=== PATIENT | female | born 1960 ===

== ENCOUNTER 2023-12-02 01:19 | Emergency (ER) | payer MEDICARE, SELFPAY ==
[2023-12-02 01:22] VITALS: BP 163/44
--- NOTE | 2023-12-02 01:46 | ED.GENMED ---
History of Present Illness
General
Chief Complaint: Headache
Source: patient
Exam Limitations: none
Time Seen by Provider: 12/02/23 01:27
History of Present Illness
History of Present Illness:
This is a 63 year old female that comes in with c/o headache. States that yesterday she started with a migraine. States that she took Excedrin and esther. Then 2 hours later she took Ubrelvy which her neurologist gave her. Then 2 hours later she
took this again and she felt OK. Then 3 hours later she took Ibuprofen 800mg and sent to sleep. In the morning she was ok. Then around 10am she started with a Ora of blinking and sparkling. At 11pm last night she got the numbness in the right arm
and her face which she states she always gets. States that she took Ubrelvy but this did not help. States that this was different then her normal migraine as it was across her forehead and then went to the back of her head. At 12:30am she took
Ibuprofen 600mg. States that she is nauseated and vomiting and still has a headache.
Past History
Past History
ED Past Medical History: Cancer (Lymphoma) and Other (Migraine, West Nile virus)
ED Past Surgical History: None
Social History
Tobacco: Non-smoker
Alcohol: None
Personal:
Living: with family
Review of Systems
Review of Systems
All Other Systems: ROS reviewed and negative except as documented in HPI and ROS
Constitutional: Reports no symptoms; Denies fever or chills
EENT: Reports no symptoms
Respiratory: Reports no symptoms; Denies cough or trouble breathing
Cardiac: Reports no symptoms; Denies chest pain
ABD/GI: Reports nausea and vomiting; Denies abdominal pain or diarrhea
: Reports no symptoms; Denies dysuria, frequency or urgency
Musculoskeletal: Reports no symptoms
Skin: Reports no symptoms
Neurological: Reports headache; Denies dizzy
Psychiatric: Reports no symptoms
Phy Exam
General Physical Exam
General Presentation: no apparent distress
General age: appears stated age
General Skin: warm and dry
General Habitus: normal
General Mental: alert
General Hydration: dry mucous membranes
ENT Exam
ENT Exam: TM's normal, pharynx normal and neck supple
Eye Exam
Eye Exam: EOMI
Cardiovascular Exam
Cardiovascular Exam: regular rate/rhythm, no edema, no murmur and normal peripheral pulses
Pulmonary Exam
Pulmonary Exam: lungs clear, no respiratory distress, no rales, chest non tender, no crackles, no rhonchi, no wheezing and no cough
Gastrointestinal Exam
Gastrointestinal Exam: normal bowel sounds, non tender, soft, no organomegaly, no pulsatile mass and non distended
Musculoskeletal Exam
Musculoskeletal Exam: full ROM and no edema
Skin Exam
Skin Exam: normal color, warm/dry, no rash and no petechia
Psychiatric Exam
Psychiatric Exam: normal mood/affect
Course
Orders/Labs/Results
Orders:
Orders
12/02/23 01:44
0.9% Sodium Chloride 500 ml [Nss] 500 ml IV BOLUS
Acetaminophen 1000MG/100Ml [Ofirmev] 1,000 mg in 100 ml IV ONCE
Acetaminophen IV Indication:: ED Narcotic Naive Pt-ONCE
Dexamethasone Sod Phosphate [Decadron] 20 mg IV NOW STA
Diphenhydramine [Benadryl] 25 mg IV NOW STA
Ondansetron Injectable [Zofran] 4 mg IV NOW STA
12/02/23 01:45
CT Head W/o Iv Contrast Urgent
Comment:
Reason For Exam: Headache, different then her normal migraines
12/02/23 02:12
Complete Blood Count/With Diff Urgent
Comprehensive Metabolic Panel Urgent
Abnormal Lab Results
12/02/23
02:12
Absolute Lymphs (auto) 1.0 L 10^3/uL
(1.2-3.4)
Neutrophils % 78.2 H %
(42.2-75.2)
Lymphocytes % 15.7 L %
(20.5-51.1)
BUN 25 H mg/dl
(7-17)
Glucose 105 H mg/dl
(70-99)
12/02/23 02:12
12/02/23 02:12
Dehydration. Glucose nonfasting.
Vital Signs
Initial and Last Documented VS:
Initial Vital Signs
Temp Pulse Resp BP Pulse Ox
98.7 F 54 20 163/44 100
12/02/23 01:22 12/02/23 01:22 12/02/23 01:22 12/02/23 01:22 12/02/23 01:22
Last Documented Vital Signs
Temp Pulse Resp BP Pulse Ox
98.7 F 63 18 140/63 98
12/02/23 01:22 12/02/23 02:15 12/02/23 02:15 12/02/23 02:13 12/02/23 02:15
MDM/Problems Addressed
Differential Diagnosis Includes:
Migraine,
MDM/Problems Addressed:
This is a 63 year old female that comes in with c/o headache. States that this started yesterday and tonight at 11pm it was worse. States that she normally gets right arm numbness with facial numbness. States that this is different then her normal
Migraines as it is across her forehead and then goes to the back of the head.
will check labs, Medicate for pain, IV fluids and CT scan.
Back into see patient. Explained that her blood work shows Dehydration. Patient CT of the head is normal. Patient states that she is feeling better but her headache is not totally gone. Patient is very tired. Will have patient go home to sleep.
Follow up with the Neurologist. Use her medication that she has at home for headache. Return with any concerns.
Chronic conditions affecting care:
Migraines
Acute Exacerbation and/or Progression of Chronic Illness:
Migraines
*Radiology
Radiology exam reviewed: radiology read reviewed (CT head night hawk- NO acute intracranial abnormality. NO acute territorial infarct, hemorrhage, mas effect, or midline shift. )
*EKG
Interpreted by ED Provider?: NA
Rate: EKG- N/A
*Computer Builder Interpretation
Rate: Computer Builder- N/A
*Critical Care Note
Total Time (30-74mins, 75-104mins- exclusive of procedures): Not Applicable
ED Attending Note
-
Portions of this chart may have been created with voice recognition software.� Occasional wrong word or��sound alike� substitutions may have occurred due to the inherent limitations of voice recognition software.
Discharge Plan
Departure
Patient Disposition: Home (Routine Discharge)
Date of Disposition: 12/02/23
Time of Disposition: 03:43
Patient with high blood pressure during this ER visit?: Yes
Condition: Good
Covid-19: Not Applicable
Discharge Problem:
Migraine
Instructions: Migraines (DC), BLOOD PRESSURE
Referrals:
Afshin Peraza MD [Family Provider] - Follow up in 2-3 days
Activity Restrictions/Additional Instructions:
As discussed, your blood work shows that you are dehydrated. Please increase your water intake to 8-8oz glasses daily. Your CT is negative for any acute intracranial process. Please use your medication you have at home for Headache pain. Follow up
with the Family doctor and your Neurologist for further evaluation. IF YOU HAVE ANY OTHER CONCERNS PLEASE RETURN TO THE EMERGENCY ROOM.
Interventions
Interventions:
*Risk Screen - Suicide Last Done: 12/02/23 01:22
*General Assessment Last Done: 12/02/23 01:22
*Neglect/Abuse Screening Last Done: 12/02/23 01:22
ED- Fall Risk Assessment Last Done: 12/02/23 01:22
*ED COVID-19 Vaccine History Last Done: 12/02/23 01:22
ED- Neurological Assessment Last Done: 12/02/23 01:40
Discharge Date and Time
Print Language: SPANISH
[2023-12-02 02:13] VITALS: BP 140/63
[2023-12-02] MEDS: BENADRYL 25 MG IV (02:37)
[2023-12-02] MEDS: DECADRON IV (02:41)
[2023-12-02] MEDS: NSS 500 IV (02:42)
[2023-12-02] MEDS: OFIRMEV 100 IV (02:43)
[2023-12-02] MEDS: DECADRON 10 MG IV (02:51)
[2023-12-02 02:53] VITALS: BMI 32.4
[2023-12-02 02:57] LABS: % Basophils 0.3 % (0-2); % Eosinophils 0.8 % (0-6); % Immature Granulocytes 0.2 % (0-0.5); % Lymphocytes 15.7 % (20.5-51.1); % Monocytes 4.8 % (1.7-9.3); % Neutrophils 78.2 % (42.2-75.2); Absolute Eosinophils 0.1 10^3/uL (0-0.7); Absolute Monocytes 0.3 10^3/uL (0.1-0.6); Absolute Neutrophils 4.8 10^3/uL (1.4-6.5); Hematocrit 41.4 % (37.0-47.0); Hemoglobin 14.7 g/dL (12.0-16.0); Mean Corp Hgb Conc. 35.5 g/dL (33.0-37.0); Mean Corpuscular Hgb 30.2 pg (27.0-31.0); Mean Corpuscular Volume 85.2 fL (81.0-99.0); Mean Platelet Volume 9.7 fL (7.4-10.4); Nucleated Red Blood Cells % 0 %; Platelet Count 164 10^3/uL (130-400); Red Blood Cell Count 4.86 10^6/uL (4.20-5.40); Red Cell Dist. Width 13.5 % (11.5-14.5); White Blood Cell Count 6.2 10^3/uL (4.8-10.8)
[2023-12-02 03:00] VITALS: BP 142/64
[2023-12-02 03:37] LABS: ALT (SGPT) 24 U/L (0-35); AST (SGOT) 30 U/L (14-36); Albumin 4.5 g/dl (3.5-5.0); Alkaline Phosphatase 78 U/L (38-126); Blood Urea Nitrogen 25 mg/dl (7-17); Calcium 9.9 mg/dl (8.4-10.2); Carbon Dioxide 23 mmol/L (22-30); Chloride 105 mmol/L (98-107); Estimated Creatinine Clearance 65 ml/min; Glucose 105 mg/dl (70-99); Potassium 4.3 mmol/L (3.5-5.1); Sodium 137 mmol/L (135-145); Total Bilirubin 0.9 mg/dl (0.2-1.3); Total Protein 6.4 g/dl (6.3-8.2); eGFR > 60.00
== END 2023-12-02 03:50 | disposition home or self-care (01) ==
LOC: EMR 01:19
PROVIDERS: Clinical Nurse Specialist Family Health; EMERGENCY PHYSICIAN Emergency Medicine; FAMILY PHYSICIAN Internal Medicine
DX: G43.909 Migraine, unspecified, not intractable, without status migrainosus (principal); E86.0 Dehydration
CPT/HCPCS: 99284; 96374; 96375; 70450; 80053; 85025

== ENCOUNTER 2024-12-12 19:06 | Emergency (ER) | payer MEDICARE, OTHER, SELFPAY ==
[2024-12-12 19:09] VITALS: BP 159/72
[2024-12-12 19:31] VITALS: BMI 31.9
[2024-12-12 19:43] VITALS: BP 138/70
[2024-12-12 20:00] VITALS: BP 139/71
[2024-12-12] MEDS: NSS 1000 IV (21:03)
[2024-12-12] MEDS: REGLAN 10 MG IV (21:05)
[2024-12-12] MEDS: BENADRYL 25 MG IV (21:05)
--- NOTE | 2024-12-12 21:21 | ED.GENMED ---
History of Present Illness
General
Chief Complaint: Headache
Source: patient
Exam Limitations: none
Time Seen by Provider: 12/12/24 20:24
History of Present Illness
History of Present Illness:
64-year-old female with history of migraines presents with the onset of headache starting yesterday. It was slightly improved after her rescue medication she took at home with ibuprofen. The pain returned today. She also noted some chills today
with her headache however her temperature was normal at home. No vomiting. She is slightly nauseous. No cough or shortness of breath. No unilateral numbness or weakness. No neck pain. No other complaints at this time
Past History
Past History
ED Past Medical History: Cancer (Lymphoma) and Other (Migraine, West Nile virus)
ED Past Surgical History: None
Social History
Tobacco: Non-smoker
Alcohol: None
Personal:
Living: with family
Phy Exam
Physical Exam
Physical Exam:
General: Well-appearing female no acute respiratory distress
HEENT normocephalic pupils equal round reactive to light face is symmetric neck is supple
Neurologic exam alert and oriented normal gait finger-nose [id number] intact no drift no meningeal signs
Skin is warm no rash
Course
Orders/Labs/Results
Orders:
Orders
12/12/24 20:41
0.9% Sodium Chloride 1000 ml [Nss] 1,000 ml IV BOLUS
Diphenhydramine [Benadryl] 25 mg IV NOW STA
Metoclopramide [Reglan] 10 mg IV NOW STA
12/12/24 21:10
COVID-19 Antigen Urgent
Source: Nasal Swab
Complete Blood Count/With Diff Urgent
Comprehensive Metabolic Panel Urgent
Lyme Progressive Urgent
12/12/24 22:20
Add On- LAB Urgent
Tests Added?: [place] IGM serum
Abnormal Lab Results
12/12/24
21:10
Absolute Lymphs (auto) 1.0 L 10^3/uL
(1.2-3.4)
Neutrophils % 78.7 H %
(42.2-75.2)
Lymphocytes % 15.1 L %
(20.5-51.1)
Sodium 133 L mmol/L
(135-145)
BUN 20 H mg/dl
(7-17)
Glucose 107 H mg/dl
(70-99)
Total Protein 6.2 L g/dl
(6.3-8.2)
12/12/24 21:10
12/12/24 21:10
Vital Signs
Initial and Last Documented VS:
Initial Vital Signs
Temp Pulse Resp BP Pulse Ox
98.2 F 80 18 159/72 98
12/12/24 19:09 12/12/24 19:09 12/12/24 19:09 12/12/24 19:09 12/12/24 19:09
Last Documented Vital Signs
Temp Pulse Resp BP Pulse Ox
98.2 F 56 16 105/59 97
12/12/24 19:09 12/12/24 22:00 12/12/24 22:00 12/12/24 22:00 12/12/24 22:00
MDM/Problems Addressed
Differential Diagnosis Includes:
Headache consistent with prior migraines. No fever to suggest infectious source. She does not describe a sudden onset headache. She is concerned about the chills she had. Will test for COVID and check labs but treat migraine symptoms with Reglan
and Benadryl and fluids.
*Pulse Oximetry
SaO2: 97
Oxygen Mode of Delivery: Room air
Patient hypoxic: no
*Critical Care Note
Total Time (30-74mins, 75-104mins- exclusive of procedures): Not Applicable
Update Note
Update Note:
Patient feeling better after medication here. I suspect migraine. COVID was negative.
ED Attending Note
-
Portions of this chart may have been created with voice recognition software.� Occasional wrong word or��sound alike� substitutions may have occurred due to the inherent limitations of voice recognition software.
Discharge Plan
Departure
Patient Disposition: Home (Routine Discharge)
Date of Disposition: 12/12/24
Time of Disposition: 22:23
Patient with high blood pressure during this ER visit?: No
Discharge Problem:
Migraine
Instructions: Migraines (DC)
Prescriptions:
New
metoclopramide HCl [Reglan] 10 mg tablet
10 mg PO Q6H PRN (Reason: nausea and vomiting) Qty: 10 0RF
ibuprofen 800 mg tablet
800 mg PO TID PRN (Reason: Pain) Qty: 14 0RF
Referrals:
Afshin Peraza MD [Family Provider, Internal Medicine]
Activity Restrictions/Additional Instructions:
Rest. Use medications as needed for pain. Return if needed. Follow up with PMD otherwise
Interventions
Interventions:
*Risk Screen - Suicide Last Done: 12/12/24 19:09
*General Assessment Last Done: 12/12/24 19:31
*Neglect/Abuse Screening Last Done: 12/12/24 19:31
*ED- Fall Risk Assessment Last Done: 12/12/24 19:31
*ED COVID-19 Vaccine History Last Done: 12/12/24 19:31
ED- Neurological Assessment Last Done: 12/12/24 19:31
Discharge Date and Time
Print Language: AZERI
[2024-12-12 21:27] LABS: Hematocrit 42.6 % (37.0-47.0); Hemoglobin 14.6 g/dL (12.0-16.0); Mean Corp Hgb Conc. 34.3 g/dL (33.0-37.0); Mean Corpuscular Volume 86.2 fL (81.0-99.0); Nucleated Red Blood Cells % 0 %; Platelet Count 168 10^3/uL (130-400); Red Cell Dist. Width 13.4 % (11.5-14.5)
[2024-12-12 21:40] LABS: COVID-19 Antigen Negative (Negative)
[2024-12-12 21:49] LABS: ALT (SGPT) 29 U/L (0-35); AST (SGOT) 21 U/L (14-36); Albumin 4.6 g/dl (3.5-5.0); Alkaline Phosphatase 57 U/L (38-126); Blood Urea Nitrogen 20 mg/dl (7-17); Calcium 9.4 mg/dl (8.4-10.2); Carbon Dioxide 27 mmol/L (22-30); Chloride 102 mmol/L (98-107); Estimated Creatinine Clearance 72 ml/min; Glucose 107 mg/dl (70-99); Potassium 4.5 mmol/L (3.5-5.1); Sodium 133 mmol/L (135-145); Total Protein 6.2 g/dl (6.3-8.2); eGFR > 60.00
[2024-12-12 22:00] VITALS: BP 105/59
[2024-12-12 22:30] VITALS: BP 110/50
[2024-12-14 16:43] LABS: Lyme Antibody Screen, EIA Negative (Negative)
== END 2024-12-12 22:36 | disposition home or self-care (01) ==
LOC: EMR 19:06
PROVIDERS: Physician Assistant; EMERGENCY PHYSICIAN Emergency Medicine; FAMILY PHYSICIAN Internal Medicine
DX: G43.909 Migraine, unspecified, not intractable, without status migrainosus (principal)
CPT/HCPCS: 96374; 96375; 96361; 99284; 80053; 85025; 86618; 86788; 87811